=== PATIENT | male | born 1945 | race Caucasian/White ===

== ENCOUNTER → 2017-02-06 | Outpatient (CLI) | payer OTHER ==
[~2017-02-06] MED LIST: ACET-1256 PO; ALPR-411 PO; ASPI-435 PO; ATEN-173 PO; CITA20TA9 PO; CRAN1CAP14 PO; CYAN100048; CYAN10005 PO; FLUT0.0529 INH; GLC500 PO; HYDR25TA5 PO; MILK1CAP9 PO; MONT1TAB3 PO; MULT-188 PO; MULT-506 PO; NIAC500T11 PO; PANT40TA PO; ROPI1TAB PO; VTMD1000 PO
[2017-02-06 14:48] LABS: BLOOD UREA NITROGEN 22 mg/dl (7-18)
== END | disposition home or self-care (01) ==
LOC: C.LABBC 10:48
PROVIDERS: ATTEND Orthopaedic Surgery Orthopaedic Surgery of the Spine
DX: M54.12 Radiculopathy, cervical region (principal); M47.812 Spondylosis without myelopathy or radiculopathy, cervical region; E11.9 Type 2 diabetes mellitus without complications

== ENCOUNTER 2017-02-19 08:05 | Day surgery (SDC) | payer OTHER ==
[2017-02-19] VITALS (10 sets, daily range): BP systolic 116–152; BP diastolic 55–93; PULSE 53–74; TEMP 36.5–36.8; O2SAT 95–100; Ht 172.7 cm; Wt 99.0 kg
[~2017-02-19] VITALS: Ht 172.7 cm; Wt 99.0 kg
[~2017-02-19 08:05] MED LIST changes: -ACET-1256 PO; -CYAN10005 PO
[2017-02-19] MEDS ORDERED: CYAN10005 PO (08:34)
[2017-02-19] MEDS ORDERED: ACET-1256 PO (08:35)
--- NOTE | 2017-02-19 11:04 | DIAGNOSTIC IMAGING REPORT ---
CERVICAL SPINE CT WITH INTRATHECAL CONTRAST HISTORY: Neck pain. TECHNIQUE: Multiaxial CT images of the cervical spine was performed following the intrathecal injection of contrast and reformatted in the sagittal coronal planes. COMPARISON STUDY: Cervical spine MRI outside hospital 03/06/2015. FINDINGS: Minimal levoscoliosis of the cervical spine. Alignment is intact. No fracture or subluxation. Moderate to space narrowing at C6-C7 and C7-T1 with associated small endplate osteophytes. Anterior cervical discectomy and fusion from C4 through C6. The hardware appears intact. There is any a small amount of fusion of the C5-C6 levels. The C4-C5 level is completely fused. Prevertebral soft tissues and the C1-C2 interval are intact. There is no evidence for an 1.4 cm subcutaneous soft tissue nodule within the right posterior neck at the C5 level. C2-C3: No significant central canal or neural foraminal narrowing. C3-C4: No significant central canal or right-sided neural foraminal narrowing. There is mild to moderate left-sided neural foraminal narrowing due to the uncovertebral and facet hypertrophy. C4-C5: Small endplate osteophytes which partially effaces the anterior thecal sac without significant cord deformity. There is mild atrophy/myelomalacia along the right side of the cervical spinal cord at this level. Mild bilateral neural foraminal narrowing. C5-C6: Small endplate osteophytes with resultant partial effacement of the anterior thecal sac without cord deformity. Overall, there is mild central canal narrowing. There is severe right and moderate left neural foraminal narrowing due to the uncovertebral and facet hypertrophy. C6-C7: No significant central canal or neural foraminal narrowing. C7-T1: No significant central canal or neural foraminal narrowing. IMPRESSION: 1. Anterior cervical discectomy and fusion at C4 through C6. The hardware appears intact. The C5-C6 level is only slightly fused. 2. 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 3. Multilevel bilateral neural foraminal narrowing at described above. This is most pronounced at the C5-C6 level. 4. Small posterior endplate osteophytes from C4 through C6 which result in partial effacement of the anterior thecal sac without significant cord deformity. 5. There is mild central canal narrowing at the C5-C6 level. 6. Indeterminate 1.4 cm subcutaneous soft tissue nodule within the right posterior neck at the C5 level. Recommend dedicated ultrasound for further evaluation. Electronically signed by: Jonh Wagner M.D. 02/19/2017 11:03 AM Dictated Date/Time: 02/19/2017 10:46 AM
--- NOTE | 2017-02-19 11:44 | DIAGNOSTIC IMAGING REPORT ---
FLUOROSCOPICALLY GUIDED CERVICAL MYELOGRAM CLINICAL HISTORY: order: CT myelogram cervical spine. Neck pain. FLUOROSCOPY TIME: 0.8 minutes. A single fluoroscopic spot image PROCEDURE: The procedure, risks and benefits were discussed with the patient including the risk of spinal headache, bleeding and infection. The patient agreed to the procedure and informed written consent was obtained. The procedure was performed by Dr. Wagner following a timeout. The left L2-L3 interlaminar space was targeted. Skin overlying the space was prepped and draped in the usual sterile fashion and local anesthesia was achieved with 1% lidocaine. Under intermittent fluoroscopic guidance, a 22-gauge x 3.5 in. spinal needle was inserted into the thecal sac. A total of 10 cc of Isovue-M [id number] was injected into the thecal sac. The patient was placed in a Trendelenburg position and contrast was seen entering the cervical region. The patient was sent to the CT suite for further imaging. The patient tolerated the procedure well. There were no immediate complications. IMPRESSION: Successful fluoroscopic guided lumbar puncture for a cervical myelogram. No immediate complications. Electronically signed by: Jonh Wagner M.D. 02/19/2017 11:42 AM Dictated Date/Time: 02/19/2017 11:40 AM
--- NOTE | 2017-02-19 11:44 | Discharge Instructions ---
Discharge Instructions Procedure Procedure Date: Feb 19, 2017. Reason for visit: Cervical Radiculopathy, Spondlyosis. Discharge Discharge Date: Feb 19, 2017. Discharge Diagnosis: same Instructions Activity Recommendations: No limitations Return to School/Work: no limitations Recommended Home Diet: Resume Previous Diet Provider Instructions: ACTIVITY RECOMMENDATIONS: * Rest today. * Resume regular activity in one day. MEDICATIONS: * May take Tylenol or Ibuprofen as needed for pain. DIET: * Resume previous diet. SPECIAL CARE INSTRUCTIONS: Call your doctor if: * Temperature above 101 degrees F. * Pain not relieved by pain medicine ordered. * Increased drainage or redness from incision. * Notify your doctor with any questions or concerns. Call your doctor or go to the nearest Emergency Department if you experience: * Increased chest pain or shortness of breath. FOLLOW UP VISIT: Follow-up with Referring Physician as scheduled. Allergies Coded Allergies: Sulfa Antibiotics (Verified Adverse Reaction, Intermediate, HEADACHE, ) Frank Scruggs Recommendations: Call your doctor if: * Temperature above 101 degrees * Pain not relieved by pain medicine ordered * There is increased drainage or redness from any incision * You have any unanswered questions or concerns. Your Doctors Instructions noted above were prepared by provider Jonh Wagner. Patient Signature Section: Patient Instructions Signature Page [place] Patient (or Guardian) Signature/Date: I have read and understand the instructions given to me by my caregivers. Caregiver/RN/Doctor Signature/Date: The above-named patient and/or guardian has received patient instructions on this date. + Original Patient Signature Page (only) stays with chart. Please make copy for patient.
[2017-02-19] MEDS ORDERED: ACETAMINOPHEN 500 MG TAB PO PRN (11:45)
== END 2017-02-19 15:13 | disposition home or self-care (01) ==
LOC: C.ACU 08:05
PROVIDERS: ATTEND Orthopaedic Surgery Orthopaedic Surgery of the Spine
DX: M54.2 Cervicalgia (principal)